=== PATIENT | male | born 1960 | race Caucasian/White ===

== ENCOUNTER 2019-08-22 06:40 | Emergency (ER) | payer SELFPAY ==
[2019-08-22] MEDS ORDERED: SODIUM CHLORIDE 0.9% (FLUSH) 10 ML SYG IV PRN (06:49)
[2019-08-22] MEDS ORDERED: SODIUM CHLORIDE 0.9% 1000ML 1,000 ML IVS ONE (07:04)
[2019-08-22] MEDS ORDERED: ONDANSETRON INJ 4 MG/2 ML VIAL IV ONE (07:04)
[2019-08-22] MEDS ORDERED: KETOROLAC TROMETHAMINE INJ 30 MG/ML VIAL IV ONE (07:04)
--- NOTE | 2019-08-22 07:18 | ED.PDOC ---
History of Present Illness - General Chief Complaint: Problem Stated Complaint: my left side has been hurting for 7 days Time Seen by Provider: 08/22/19 06:49 Source: patient - History of Present Illness Initial Comments: 59 yo male with PMH of kidney stones who presents with CC of LLQ abdominal pain. Insidious onset 1 week ago while at work, denies any acute injuries/trauma at that time. Reports has had intermittent pains since then occurring about 3-4 times per day. Pain worsened last night and became persistent, located primarily to LLQ but radiates to the LUQ, left lower back, and occasionally into the left inguinal region, at times rates as 10/10, currently 5/10, constant, describes as visceral-like pain, no known exacerbating factors-not worse with position changes/urination/bowel movements, has taken some old hydrocodone and Flexeril at home over the past few days with little relief. Reports he did have some constipation shortly after onset of pain which seems to have resolved by taking MiraLAX-states he had 2 bowel movements yesterday. Reports history of right-sided kidney stones several years ago and pain feels pretty similar to that. Denies any dysuria, hematuria, diarrhea, melena, fevers, chills, chest pain, dyspnea, testicular pain or swelling, penile discharge. Denies any history of abdominal masses or hernias. Denies any history of abdominal surgery. Reports last colonoscopy was about 11 years ago with 2 polyps removed at that time. PCP was Dr. Mota in [place], but he recently retired. Allergies/Adverse Reactions: Allergies Naproxen [From Aleve] Allergy (Verified 03/05/14 21:39) Home Medications: Ambulatory Orders Acetaminophen W/ Codeine [Tylenol W/ CODEINE #3] 1 ea PO Q6H PRN 7 Days #15 08/22/19 Ciprofloxacin HCl [Ciprofloxacin Hydrochlori] 500 mg PO BID 7 Days #14 tab 08/22/19 Omeprazole Magnesium [Prilosec Otc] 20 mg PO 08/22/19 Ondansetron Odt [Zofran ODT] 8 mg PO Q8H PRN 5 Days #10 tab 08/22/19 Tamsulosin [Flomax] 0.4 mg PO DAILY 7 Days #7 cap 08/22/19 Review of Systems - Review of Systems Review of Systems: 08/22/19 07:32 as per HPI All other Systems: Reviewed and Negative Past Medical History (General) - Patient Medical History Hx Gastroesophageal Reflux: Yes - Vaccination History Hx Tetanus, Diphtheria Vaccination: No Hx Influenza Vaccination: No Hx Pneumococcal Vaccination: No - Social History Hx Tobacco Use: No Hx Alcohol Use: Yes Hx Substance Use: No Hx Substance Use Treatment: No Hx Depression: No - Female History Patient : No Family Medical History - Family History Father Family History: No Known Physical Exam - Physical Exam General Appearance: Alert, No apparent distress Eye Exam: bilateral normal Ears, Nose, Throat: hearing grossly normal, normal ENT inspection, normal pharynx Neck: non-tender, full range of motion, supple, normal inspection Respiratory: lungs clear, normal breath sounds, no respiratory distress, no accessory muscle use Cardiovascular/Chest: normal peripheral pulses, regular rate, rhythm, no edema, no gallop, no JVD, no murmur Peripheral Pulses: radial,right: 2+, radial,left: 2+ Gastrointestinal/Abdominal: normal bowel sounds, soft, no organomegaly, tenderness - Mild TTP to LLQ and LUQ without guarding or rebound. Mild left lower back TTP. 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, no motor/sensory deficits, alert, normal mood/affect, oriented x 3 Skin Exam: normal color, warm/dry Progress - Progress Progress: 08/22/19 07:35 LLQ pain -Consider: Constipation, kidney stone, diverticulitis/diverticulosis, hernia, UTI/pyelonephritis, colitis, gastroenteritis, neoplasm, prostatitis, pancreatitis, appendicitis, SBO, abdominal wall muscle strain, atypical ACS, other -Obtain blood work, cardiac work-up, anticipate CT abdomen pelvis -Place PIV, 1L NS bolus, Toradol 30 mg IV (states allergic to naproxen - itching - but tolerates ibuprofen well), Zofran 4 mg IV 08/22/19 08:51 -CT A/P reveals 4 x 6 mm stone in the proximal left ureter with some evidence of mild hydronephrosis of the left kidney. No other acute processes noted. Note is made of 5.5 cm cyst of the lower pole of the right kidney and of evidence of diverticulosis throughout the colon without evidence of diverticulitis. -Labs pertinent for glucose 200, lactate 2.1, WBC 5.4 with 60% segs. UA with 13 RBC, 3-5 WBC, negative bacteria, negative nitrites. -Patient remains stable, reports pain markedly improved with ED treatment. Discussed all findings and diagnosis of left ureteral stone. Also discussed findings of diverticulosis, right renal cyst, and hyperglycemia. For the kidney stone, will treat with Flomax 0.4 mg once daily until passage of stone. Will also cover with Cipro 500 mg twice daily for 7 days given slightly elevated lactate although pt is afebrile and normal WBC. Also given Rx's of Tylenol #3 PRN & Zofran PRN. -DC to home in good condition, return warnings discussed at length. Advised close follow-up with PCP to establish care, follow-up for kidney stone and other issues as discussed above. Kory Edwards MD Billing #[id number] 08/22/19 06:49 Sodium Chloride 0.9% (Flush) [Saline Flush Syringe] 10 ml IV PRN PRN Pulse Oximetry Assessment DAILY 08/22/19 07:00 EKG STAT 08/22/19 07:25 Hold Metformin x 48Hrs [id number] 08/22/19 09:00 Pulse Ox Daily Laboratory Results - last 24 hr 08/22/19 08/22/19 08/22/19 06:57 06:57 06:57 WBC 5.4 RBC 4.68 L Hgb 15.4 Hct 43.8 MCV 93.4 MCH 32.8 H MCHC 35.1 RDW 13.3 Plt Count 198 MPV 6.9 L Absolute Neuts (auto) 3.30 Absolute Lymphs (auto) 1.50 Absolute Monos (auto) 0.40 Absolute Eos (auto) 0.10 Absolute Basos (auto) 0.00 Neutrophils % 60.8 Lymphocytes % 27.8 Monocytes % 8.1 Eosinophils % 2.5 Basophils % 0.8 Sodium 138 Potassium 3.6 Chloride 103 Carbon Dioxide 25 Anion Gap 13.6 BUN 16 Creatinine 1.07 BUN/Creatinine Ratio 15.0 Random Glucose 200 H Serum Osmolality 282.5 Lactic Acid Calcium 8.9 Total Bilirubin 0.8 AST 19 ALT 19 Alkaline Phosphatase 59 Troponin I Serum Total Protein 6.8 Albumin 4.2 Globulin 2.6 Albumin/Globulin Ratio 1.6 Amylase 21 L Lipase 27 Urine Color Urine Appearance Urine pH Ur Specific [place] Urine Protein Urine Glucose (UA) Urine Ketones Urine Blood Urine Nitrite Urine Bilirubin Urine Urobilinogen Ur Leukocyte Esterase Urine RBC Urine WBC Ur Epithelial Cells Urine Bacteria Urine Mucus 08/22/19 08/22/19 08/22/19 06:57 06:57 07:13 WBC RBC Hgb Hct MCV MCH MCHC RDW Plt Count MPV Absolute Neuts (auto) Absolute Lymphs (auto) Absolute Monos (auto) Absolute Eos (auto) Absolute Basos (auto) Neutrophils % Lymphocytes % Monocytes % Eosinophils % Basophils % Sodium Potassium Chloride Carbon Dioxide Anion Gap BUN Creatinine BUN/Creatinine Ratio Random Glucose Serum Osmolality Lactic Acid 2.1 Calcium Total Bilirubin AST ALT Alkaline Phosphatase Troponin I < 0.02 Serum Total Protein Albumin Globulin Albumin/Globulin Ratio Amylase Lipase Urine Color Yellow Urine Appearance Clear Urine pH 6.0 Ur Specific [place] 1.025 Urine Protein Negative Urine Glucose (UA) 100 H Urine Ketones Negative Urine Blood Trace-intact H Urine Nitrite Negative Urine Bilirubin Negative Urine Urobilinogen 2.0 H Ur Leukocyte Esterase Negative Urine RBC 1-3 Urine WBC 3-5 H Ur Epithelial Cells 0-1 Urine Bacteria 0 Urine Mucus Small - EKG/XRAY/CT EKG: Sinus - Heart rate 65, no ST elevations or Q waves, axis normal, intervals normal, no prior EKG for comparison. Departure - Departure Clinical Impression: Kidney stone on left side, Hyperglycemia, Diverticulosis of colon, Cyst of right kidney Time of Disposition: 08:37 Disposition: Discharge to Home or Self Care Condition: Fair Departure Forms: ED Discharge - Pt. Copy, Patient Portal Self Enrollment Instructions: DI for Kidney Stones, Hyperglycemia, Adult (DC) Diet: diabetic diet Activity: increase activity as tolerated Prescriptions: Acetaminophen W/ Codeine [Tylenol W/ CODEINE #3] 1 ea PO Q6H PRN 7 Days #15 PRN Reason: Pain Ciprofloxacin HCl [Ciprofloxacin Hydrochlori] 500 mg PO BID 7 Days #14 tab Ondansetron Odt [Zofran ODT] 8 mg PO Q8H PRN 5 Days #10 tab PRN Reason: Nausea Tamsulosin [Flomax] 0.4 mg PO DAILY 7 Days #7 cap Home Medications: Ambulatory Orders Acetaminophen W/ Codeine [Tylenol W/ CODEINE #3] 1 ea PO Q6H PRN 7 Days #15 08/22/19 Ciprofloxacin HCl [Ciprofloxacin Hydrochlori] 500 mg PO BID 7 Days #14 tab 08/22/19 Omeprazole Magnesium [Prilosec Otc] 20 mg PO 08/22/19 Ondansetron Odt [Zofran ODT] 8 mg PO Q8H PRN 5 Days #10 tab 08/22/19 Tamsulosin [Flomax] 0.4 mg PO DAILY 7 Days #7 cap 08/22/19 Additional Instructions: Remain well-hydrated and gradually advance your diet and activity level as tolerated. Take the antibiotics as directed and finish the full course even if well. Take the Flomax as directed every day until your kidney stone passes or until you finish the full course. Return to the ED if symptoms worsen or other concerning symptoms develop such as worsening pain, fevers, blood in the stool, intractable nausea and vomiting, etc. Close outpatient follow-up with your primary care physician in the next 5 to 7 days as recommended or sooner as needed to follow-up for your kidney stone and for high blood sugar as well as Right kidney cyst.
[2019-08-22] MEDS ORDERED: CIPROFLOXACIN 500 MG TAB PO ONE (08:28)
[2019-08-22] MEDS ORDERED: TAMSULOSIN 0.4 MG CAP PO ONE (08:28)
--- NOTE | 2019-08-22 08:44 | CT ---
EXAM DESCRIPTION: Abdomen/Pelvis w/wo Contrast CLINICAL HISTORY: LLQ abdominal pain, hx of R sided kidney stones COMPARISON: None. TECHNIQUE: Pre and postcontrast CT images of the abdomen and pelvis are obtained. This exam was performed according to our departmental dose-optimization program, which includes automated exposure control, adjustment of the mA and/or kV according to patient size and/or use of iterative reconstruction technique . FINDINGS: The visualized lung bases show no acute infiltrate or consolidation. Mild decreased attenuation of the liver. No enhancing hepatic mass. Less than 1 cm cyst in the dome of the right lobe is seen. Spleen, pancreas, adrenal glands, and gallbladder are unremarkable. Moderate atherosclerotic disease. No nephrolithiasis. Increased attenuation nonenhancing 2.4 cm cyst of the upper pole right kidney. Fluid attenuation exophytic cyst of the lower pole left kidney measures 5.5 cm with adjacent 15 mm cyst. Mild left hydronephrosis secondary to a 4 x 6 mm calcification in the proximal ureter at the ureteral pelvic junction The remainder of the left ureter shows no abnormal calcifications. Urinary bladder is poorly distended but unremarkable. Prostate shows mild calcifications. Appendix is air-filled and normal. Stomach poorly distended. No small bowel obstruction. Scattered diverticuli of the colon predominantly in the sigmoid region without associated inflammatory changes or fluid collections. No pathologic lymphadenopathy. No free intraperitoneal air or abnormal drainable fluid collections or the osseous structures show no aggressive bony lesions. Severe disc disease is seen at L4-5 contributing to right greater than left foraminal encroachment with at least mild facet arthropathy. IMPRESSION: Mild left hydronephrosis secondary to a 6 mm calcification in the proximal ureter. Hemorrhagic or proteinaceous increased attenuation cyst of the upper pole right kidney is seen. Colon diverticulosis without CT evidence of diverticulitis. Simple appearing left renal cortical cysts. Electronically signed by: Michelet Condon MD 08/22/2019 8:43 AM CDT
[2019-08-22 09:12] VITALS: BP 161/95; TEMP 97.3; O2SAT 99
== END 2019-08-22 09:05 | disposition home or self-care (01) ==
LOC: ER 06:40
DX: N20.0 Calculus of kidney (principal); N28.1 Cyst of kidney, acquired; K57.30 Diverticulosis of large intestine without perforation or abscess without bleeding; R73.9 Hyperglycemia, unspecified
CPT/HCPCS: 36415; 74178; 80053; 81001; 82150; 83605; 83690; 84484; 85025; 93005; A4216; J1885; J2405; J7030